=== PATIENT | male | born 1970 | race Caucasian/White ===

== ENCOUNTER 2022-04-12 21:17 | Emergency (ER) | payer BC ==
[~2022-04-12] VITALS: Ht 175.3 cm; Wt 73.0 kg
[2022-04-12 21:32] VITALS: BP 122/66
--- NOTE | 2022-04-12 21:35 | NUR ---
TO LOBBY A/W BED AMBULATORY
--- NOTE | 2022-04-12 22:05 | NUR ---
PT TAKEN TO RADIOLOGY
--- NOTE | 2022-04-12 22:19 | NUR ---
PT TAKEN TO BED 8
[2022-04-12] MEDS ORDERED: LIDOCAINE 1% 500 MG/ 50 ML VIAL INJ ONE (22:25)
--- NOTE | 2022-04-12 22:29 | NUR ---
Dr. Aguilar examining patient.
[2022-04-12] MEDS ORDERED: LIDOCAINE MPF 1% 5 ML ONE (22:30)
--- NOTE | 2022-04-12 22:33 | NUR ---
DR QUAN AT BEDSIDE
--- NOTE | 2022-04-12 22:44 | NUR ---
X-Ray at bedside.
[2022-04-12] MEDS ORDERED: NAPR-54 PO (22:48)
--- NOTE | 2022-04-12 22:53 | NUR ---
Patient discharged with v/s stable. Written and verbal after care instructions given and explained. New orders for naproxen Patient verbalized understanding. Ambulatory with steady gait. All questions addressed prior to discharge. Advised to follow up with PMD.
== END 2022-04-12 22:53 | disposition home or self-care (01) ==
LOC: MED 21:17
DX: S93.105A Unspecified dislocation of left toe(s), initial encounter (principal); Z79.899 Other long term (current) drug therapy; X58.XXXA Exposure to other specified factors, initial encounter; Y93.89 Activity, other specified; Y92.89 Other specified places as the place of occurrence of the external cause; Y99.8 Other external cause status
CPT/HCPCS: 28630; 73660; 99284; J2001; 99283